=== PATIENT | male | born 1960 | race Caucasian/White ===

== ENCOUNTER 2020-05-26 02:42 | Inpatient (IN) ==
[2020-05-26] MEDS ORDERED: Ondansetron ODT 4 MG TAB.RAPDIS SL PRN (10:24)
[2020-05-26] MEDS ORDERED: Naloxone 0.4 MG/ML INJ IVP PRN (10:24)
[2020-05-26] MEDS: 0.9 % Sodium Chloride 1,000 ML IVC SCH ×2 (11:31→21:17)
[2020-05-26 12:08] LABS: Basophils # 0.1 K/mcL (0.0-0.2); Basophils % 0.8 %; Eosinophils # 0.2 K/mcL (0.0-0.6); Eosinophils % 2.1 %; Hematocrit 26.6 % (37.5-50.1); Hemoglobin 8.3 g/dL (12.9-16.9); Immature Granulocytes % 2.1 % (0-4); Lymphocytes # 1.2 K/mcL (0.6-4.6); Lymphocytes % 13.4 %; Mean Corpuscular HGB Conc 31.2 g/dL (31.6-35.5); Mean Corpuscular Hemoglobin 27.2 pg (28.0-33.3); Mean Corpuscular Volume 87.2 fL (83.0-100.0); Mean Platelet Volume 10.5 fL (9.4-12.4); Neutrophils # 6.3 K/mcL (1.6-8.9); Platelet Count 411 K/mcL (140-400); Red Blood Count 3.05 M/mcL (4.19-5.50); Red Cell Distribution Width 16.3 % (11.5-14.5); Segmented Neutrophils % 70.6 %; White Blood Count 8.9 K/mcL (4.3-11.1)
[2020-05-26 12:32] LABS: Albumin 2.8 g/dL (3.5-5.7); Albumin/Globulin Ratio 0.7 (1.1-2.2); Bilirubin,Total 0.8 mg/dL (0.3-1.0); Calcium 8.9 mg/dL (8.6-10.3); Globulin 4.1 g/dL (2.4-3.5); Potassium 4.2 mEq/L (3.5-5.1); Total Protein 6.9 g/dL (6.4-8.9); Uric Acid 6.6 mg/dL (2.3-7.6)
[2020-05-26] MEDS ORDERED: levoFLOXacin 750 MG/150 ML 750 MG/150 ML BAG IVPB ONE (17:00)
[2020-05-26] MEDS: Acetaminophen 325 MG TABLET PO PRN (17:10)
[2020-05-26 18:09] LABS: Adenovirus Not Detected (Not Detect); Bordetella Pertussis Not Detected (Not Detect); Chlamydophila pneumoniae Not Detected (Not Detect); Coronavirus 229E Not Detected (Not Detect); Coronavirus HKU1 Not Detected (Not Detect); Coronavirus NL63 Not Detected (Not Detect); Coronavirus OC43 Not Detected (Not Detect); Human Metapneumovirus Not Detected (Not Detect); Human Rhinovirus/Enterovirus Not Detected (Not Detect); Influenza A Subtype 2009 H1 Not Detected (Not Detect); Influenza B Not Detected (Not Detect); Mycoplasma pneumoniae Not Detected (Not Detect); Parainfluenza Virus 1 Not Detected (Not Detect); Parainfluenza Virus 2 Not Detected (Not Detect); Parainfluenza Virus 3 Not Detected (Not Detect); Parainfluenza Virus 4 Not Detected (Not Detect); Respiratory Syncytial Virus Not Detected (Not Detect); SARS-CoV-2 Not Detected (Not Detect)
[2020-05-27 02:03] LABS: Hematocrit 28.3 % (37.5-50.1); Hemoglobin 8.5 g/dL (12.9-16.9); Mean Corpuscular Hemoglobin 27.3 pg (28.0-33.3); Mean Platelet Volume 10.3 fL (9.4-12.4); Platelet Count 386 K/mcL (140-400); Red Blood Count 3.11 M/mcL (4.19-5.50); Red Cell Distribution Width 16.4 % (11.5-14.5); White Blood Count 7.7 K/mcL (4.3-11.1)
[2020-05-27 02:24] LABS: Chol/HDL Ratio 8.2 (0-4.9); Potassium 4.4 mEq/L (3.5-5.1)
[2020-05-27 02:26] LABS: Albumin 2.8 g/dL (3.5-5.7); Phosphorous 5.6 mg/dL (2.7-4.5)
[2020-05-27] MEDS ORDERED: *HR* HYDROmorphone (PF) 1 MG/ML SYRINGE IVP ONE ×2 (10:51→15:09)
[2020-05-27] MEDS: *HR* Heparin 5,000 UNIT/ML VIAL SQ SCH (18:15)
[2020-05-28 03:01] LABS: Basophils # 0.1 K/mcL (0.0-0.2); Basophils % 0.8 %; Eosinophils # 0.2 K/mcL (0.0-0.6); Eosinophils % 3.2 %; Hematocrit 28.3 % (37.5-50.1); Hemoglobin 8.6 g/dL (12.9-16.9); Immature Granulocytes % 2.3 % (0-4); Lymphocytes % 15.1 %; Mean Corpuscular HGB Conc 30.4 g/dL (31.6-35.5); Mean Corpuscular Hemoglobin 27.9 pg (28.0-33.3); Mean Corpuscular Volume 91.9 fL (83.0-100.0); Mean Platelet Volume 10.3 fL (9.4-12.4); Monocytes # 0.6 K/mcL (0.0-1.3); Monocytes % 9.8 %; Neutrophils # 4.5 K/mcL (1.6-8.9); Platelet Count 358 K/mcL (140-400); Red Blood Count 3.08 M/mcL (4.19-5.50); Red Cell Distribution Width 16.3 % (11.5-14.5); Segmented Neutrophils % 68.8 %; White Blood Count 6.6 K/mcL (4.3-11.1)
[2020-05-28 03:22] LABS: Calcium 8.7 mg/dL (8.6-10.3); Potassium 4.7 mEq/L (3.5-5.1)
[2020-05-28] MEDS: *HR* Heparin 5,000 UNIT/ML VIAL SQ SCH ×2 (04:48→16:53)
[2020-05-28] MEDS: MethylPREDNISolone 40 MG/ML VIAL IVP SCH ×2 (16:53→21:30)
[2020-05-28] MEDS ORDERED: levoFLOXacin 500 MG/100 ML 500 MG/100 ML BAG IVPB SCH (17:00)
[2020-05-29] MEDS: *HR* Heparin 5,000 UNIT/ML VIAL SQ SCH ×2 (04:21→17:43)
[2020-05-29 05:25] LABS: Basophils % 0.3 %; Hematocrit 29.2 % (37.5-50.1); Hemoglobin 8.9 g/dL (12.9-16.9); Immature Granulocytes % 3.4 % (0-4); Lymphocytes # 0.3 K/mcL (0.6-4.6); Lymphocytes % 4.8 %; Mean Corpuscular HGB Conc 30.5 g/dL (31.6-35.5); Mean Corpuscular Hemoglobin 27.8 pg (28.0-33.3); Mean Corpuscular Volume 91.3 fL (83.0-100.0); Mean Platelet Volume 10.4 fL (9.4-12.4); Monocytes # 0.1 K/mcL (0.0-1.3); Monocytes % 1.2 %; Neutrophils # 5.3 K/mcL (1.6-8.9); Platelet Count 411 K/mcL (140-400); Red Cell Distribution Width 15.9 % (11.5-14.5); Segmented Neutrophils % 90.3 %; White Blood Count 5.9 K/mcL (4.3-11.1)
[2020-05-29 06:01] LABS: Anisocytosis 1+ (Not Present); Platelet Estimate Normal (Normal); Toxic Granulation Present (Not Present)
[2020-05-29 06:58] LABS: Calcium 9.1 mg/dL (8.6-10.3); Potassium 5.9 mEq/L (3.5-5.1)
[2020-05-29] MEDS: MethylPREDNISolone 40 MG/ML VIAL IVP SCH ×3 (10:02→20:55)
[2020-05-29] MEDS: SODIUM ZIRCONIUM CYCLOSILICATE 5 GM POWD.PACK PO SCH (10:02)
[2020-05-29 14:30] LABS: Calcium 9.1 mg/dL (8.6-10.3)
[2020-05-29] MEDS ORDERED: Perflutren Lipid Microsphere 1.3 ML in 0.9 % Sodium Chloride 8.7 ML IVP PRN (14:36)
[2020-05-29] MEDS ORDERED: *HR* HYDROmorphone (PF) 1 MG/ML SYRINGE IVP ONE (21:25)
[2020-05-30 05:26] LABS: Basophils % 0.1 %; Hematocrit 26.9 % (37.5-50.1); Immature Granulocytes % 2.1 % (0-4); Lymphocytes # 0.4 K/mcL (0.6-4.6); Lymphocytes % 4.3 %; Mean Corpuscular HGB Conc 29.7 g/dL (31.6-35.5); Mean Corpuscular Hemoglobin 26.8 pg (28.0-33.3); Mean Corpuscular Volume 90.3 fL (83.0-100.0); Mean Platelet Volume 10.6 fL (9.4-12.4); Monocytes # 0.2 K/mcL (0.0-1.3); Monocytes % 2.3 %; Neutrophils # 8.8 K/mcL (1.6-8.9); Platelet Count 408 K/mcL (140-400); Red Blood Count 2.98 M/mcL (4.19-5.50); Red Cell Distribution Width 15.8 % (11.5-14.5); Segmented Neutrophils % 91.2 %
[2020-05-30 05:30] LABS: White Blood Count 9.6 K/mcL (4.3-11.1)
[2020-05-30 05:59] LABS: Calcium 8.7 mg/dL (8.6-10.3); Potassium 4.8 mEq/L (3.5-5.1)
[2020-05-30] MEDS: *HR* Heparin 5,000 UNIT/ML VIAL SQ SCH ×2 (06:13→17:36)
[2020-05-30] MEDS: SODIUM ZIRCONIUM CYCLOSILICATE 5 GM POWD.PACK PO SCH (09:11)
[2020-05-30] MEDS: MethylPREDNISolone 40 MG/ML VIAL IVP SCH ×2 (09:12→19:59)
[2020-05-30] MEDS ORDERED: *HR* HYDROmorphone (PF) 1 MG/ML SYRINGE IVP ONE (12:11)
[2020-05-30 13:00] LABS: Bilirubin,Urine Negative (Negative); Blood,Urine Small (Negative); Clarity,Urine Clear (Clear); Color,Urine Light-Yellow (Yellow); Glucose,Urine (UA) Normal (Normal); Ketones,Urine Negative (Negative); Leukocyte Esterase,Urine Negative (Negative); Mucus,Urine Few per lpf (None-Few); Nitrite,Urine Negative (Negative); PH,Urine 5.5 pH Units (5.0-8.0); Protein,Urine Negative (Neg-Trace); Specific Gravity,Urine 1.015 (1.010-1.025); Squamous Epithelial Cell,Urine Few per hpf (None-Few); Urobilinogen,Urine Normal (Normal); WBC,Urine 0-3 per hpf (0-3)
[2020-05-30 13:41] LABS: Protein/Creatinine Ratio,Urine 0.16 mg/mg (0.00-0.20)
[2020-05-31 03:06] LABS: Basophils % 0.2 %; Hematocrit 27.9 % (37.5-50.1); Hemoglobin 8.4 g/dL (12.9-16.9); Immature Granulocytes % 2.8 % (0-4); Lymphocytes # 0.3 K/mcL (0.6-4.6); Lymphocytes % 3.3 %; Mean Corpuscular HGB Conc 30.1 g/dL (31.6-35.5); Mean Corpuscular Hemoglobin 27.4 pg (28.0-33.3); Mean Corpuscular Volume 90.9 fL (83.0-100.0); Mean Platelet Volume 10.5 fL (9.4-12.4); Monocytes # 0.2 K/mcL (0.0-1.3); Monocytes % 1.9 %; Neutrophils # 8.8 K/mcL (1.6-8.9); Platelet Count 405 K/mcL (140-400); Red Blood Count 3.07 M/mcL (4.19-5.50); Segmented Neutrophils % 91.8 %; White Blood Count 9.6 K/mcL (4.3-11.1)
[2020-05-31 03:13] LABS: Calcium 8.4 mg/dL (8.6-10.3); Potassium 4.7 mEq/L (3.5-5.1)
[2020-05-31] MEDS: *HR* Heparin 5,000 UNIT/ML VIAL SQ SCH ×2 (05:46→18:47)
[2020-05-31] MEDS: MethylPREDNISolone 40 MG/ML VIAL IVP SCH ×3 (08:34→19:47)
[2020-05-31] MEDS: SODIUM ZIRCONIUM CYCLOSILICATE 5 GM POWD.PACK PO SCH (08:35)
[2020-06-01 05:23] LABS: Hematocrit 30.1 % (37.5-50.1); Hemoglobin 9.1 g/dL (12.9-16.9); Mean Corpuscular HGB Conc 30.2 g/dL (31.6-35.5); Mean Corpuscular Hemoglobin 27.1 pg (28.0-33.3); Mean Corpuscular Volume 89.6 fL (83.0-100.0); Mean Platelet Volume 10.4 fL (9.4-12.4); Monocytes # 0.2 K/mcL (0.0-1.3); Platelet Count 397 K/mcL (140-400); Red Blood Count 3.36 M/mcL (4.19-5.50); Red Cell Distribution Width 15.9 % (11.5-14.5); White Blood Count 9.6 K/mcL (4.3-11.1)
[2020-06-01 05:50] LABS: Calcium 8.4 mg/dL (8.6-10.3); Potassium 4.2 mEq/L (3.5-5.1)
[2020-06-01] MEDS: *HR* Heparin 5,000 UNIT/ML VIAL SQ SCH ×2 (06:16→17:38)
[2020-06-01 06:35] LABS: Anisocytosis 1+ (Not Present); Hypochromasia Present (Not Present); Lymphocytes # 0.2 K/mcL (0.6-4.6); Neutrophils # 8.8 K/mcL (1.6-8.9); Toxic Granulation Present (Not Present); Toxic Vacuolation Present (Not Present)
[2020-06-01 06:36] LABS: Platelet Estimate Normal (Normal)
[2020-06-01] MEDS: MethylPREDNISolone 40 MG/ML VIAL IVP SCH ×3 (09:29→19:40)
[2020-06-01] MEDS: SODIUM ZIRCONIUM CYCLOSILICATE 5 GM POWD.PACK PO SCH (09:29)
[2020-06-01] MEDS: Furosemide 40 MG/4 ML VIAL IVP SCH (11:25)
[2020-06-02 02:12] LABS: Basophils % 0.1 %; Eosinophils % 0.2 %; Hemoglobin 8.8 g/dL (12.9-16.9); Immature Granulocytes % 9.7 % (0-4); Lymphocytes # 0.6 K/mcL (0.6-4.6); Lymphocytes % 4.7 %; Mean Corpuscular HGB Conc 30.3 g/dL (31.6-35.5); Mean Corpuscular Hemoglobin 27.2 pg (28.0-33.3); Mean Corpuscular Volume 89.8 fL (83.0-100.0); Mean Platelet Volume 10.2 fL (9.4-12.4); Monocytes # 0.3 K/mcL (0.0-1.3); Monocytes % 2.6 %; Platelet Count 382 K/mcL (140-400); Red Blood Count 3.23 M/mcL (4.19-5.50); Red Cell Distribution Width 16.1 % (11.5-14.5); Segmented Neutrophils % 82.7 %; White Blood Count 12.9 K/mcL (4.3-11.1)
[2020-06-02 02:21] LABS: Neutrophils # 10.7 K/mcL (1.6-8.9)
[2020-06-02 02:35] LABS: Calcium 7.9 mg/dL (8.6-10.3); Potassium 4.3 mEq/L (3.5-5.1)
[2020-06-02 02:48] LABS: Anisocytosis 1+ (Not Present); Microcytosis Present (Not Present); Platelet Estimate Normal (Normal)
[2020-06-02 02:49] LABS: Hypochromasia Present (Not Present); Reactive Lymphocytes Present (Not Present); Toxic Granulation Present (Not Present)
[2020-06-02] MEDS: *HR* Heparin 5,000 UNIT/ML VIAL SQ SCH ×2 (05:38→18:18)
[2020-06-02] MEDS: MethylPREDNISolone 40 MG/ML VIAL IVP SCH ×3 (08:03→21:35)
[2020-06-02] MEDS: Furosemide 40 MG/4 ML VIAL IVP SCH (08:04)
[2020-06-03] MEDS: *HR* Heparin 5,000 UNIT/ML VIAL SQ SCH ×2 (04:57→17:08)
[2020-06-03] MEDS: Furosemide 40 MG/4 ML VIAL IVP SCH ×2 (08:44→17:09)
[2020-06-03] MEDS: MethylPREDNISolone 40 MG/ML VIAL IVP SCH ×3 (08:44→19:33)
[2020-06-04] MEDS ORDERED: amLODIPine 5 MG TABLET PO ONE (00:26)
[2020-06-04 04:42] LABS: Hematocrit 30.6 % (37.5-50.1); Hemoglobin 9.4 g/dL (12.9-16.9); Mean Corpuscular HGB Conc 30.7 g/dL (31.6-35.5); Mean Corpuscular Hemoglobin 27.2 pg (28.0-33.3); Mean Corpuscular Volume 88.7 fL (83.0-100.0); Mean Platelet Volume 10.1 fL (9.4-12.4); Nucleated Red Blood Cells 0.1 /100 WBC (0); Platelet Count 336 K/mcL (140-400); Red Blood Count 3.45 M/mcL (4.19-5.50); Red Cell Distribution Width 16.5 % (11.5-14.5); White Blood Count 14.8 K/mcL (4.3-11.1)
[2020-06-04 05:17] LABS: Calcium 7.5 mg/dL (8.6-10.3)
[2020-06-04 05:23] LABS: Basophilic Stippling 1+ (Not Present); Lymphocytes # 0.6 K/mcL (0.6-4.6); Monocytes # 0.3 K/mcL (0.0-1.3); Neutrophils # 13.3 K/mcL (1.6-8.9); Platelet Estimate Normal (Normal); Polychromasia 1+ (Not Present)
[2020-06-04] MEDS: *HR* Heparin 5,000 UNIT/ML VIAL SQ SCH ×2 (05:33→16:51)
[2020-06-04] MEDS: Furosemide 40 MG/4 ML VIAL IVP SCH ×2 (09:01→16:51)
[2020-06-04] MEDS: MethylPREDNISolone 40 MG/ML VIAL IVP SCH ×2 (09:01→21:10)
[2020-06-04] MEDS: Acetaminophen 325 MG TABLET PO PRN (09:02)
[2020-06-05 03:28] LABS: Hematocrit 33.8 % (37.5-50.1); Hemoglobin 10.4 g/dL (12.9-16.9); Mean Corpuscular HGB Conc 30.8 g/dL (31.6-35.5); Mean Corpuscular Hemoglobin 27.5 pg (28.0-33.3); Mean Corpuscular Volume 89.4 fL (83.0-100.0); Mean Platelet Volume 10.8 fL (9.4-12.4); Nucleated Red Blood Cells 0.2 /100 WBC (0); Platelet Count 312 K/mcL (140-400); Red Blood Count 3.78 M/mcL (4.19-5.50); Red Cell Distribution Width 16.7 % (11.5-14.5); White Blood Count 14.2 K/mcL (4.3-11.1)
[2020-06-05 03:47] LABS: Calcium 7.6 mg/dL (8.6-10.3); Potassium 4.1 mEq/L (3.5-5.1)
[2020-06-05 04:00] LABS: Anisocytosis 1+ (Not Present); Lymphocytes # 1.4 K/mcL (0.6-4.6); Monocytes # 0.3 K/mcL (0.0-1.3); Neutrophils # 11.9 K/mcL (1.6-8.9); Platelet Estimate Normal (Normal)
[2020-06-05] MEDS: *HR* Heparin 5,000 UNIT/ML VIAL SQ SCH ×2 (05:09→17:45)
[2020-06-05] MEDS: Furosemide 40 MG/4 ML VIAL IVP SCH (09:31)
[2020-06-05] MEDS: MethylPREDNISolone 40 MG/ML VIAL IVP SCH ×2 (09:31→20:41)
[2020-06-05] MEDS: Furosemide 40 MG TABLET PO SCH (17:45)
[2020-06-06] MEDS: *HR* Heparin 5,000 UNIT/ML VIAL SQ SCH ×2 (04:29→18:04)
[2020-06-06] MEDS: MethylPREDNISolone 40 MG/ML VIAL IVP SCH ×2 (07:55→19:32)
[2020-06-06] MEDS: Furosemide 40 MG TABLET PO SCH ×2 (07:56→18:05)
[2020-06-07] MEDS: *HR* Heparin 5,000 UNIT/ML VIAL SQ SCH ×2 (04:37→17:37)
[2020-06-07] MEDS: Furosemide 40 MG TABLET PO SCH ×2 (07:41→17:36)
[2020-06-07] MEDS ORDERED: predniSONE 20 MG TABLET PO SCH (09:00)
[2020-06-07 11:32] VITALS: BP 161/87
[2020-06-07 15:06] LABS: Influenza A PCR Negative (Negative); Influenza B PCR Negative (Negative); Resp. Syncytial Virus PCR Negative (Negative)
[2020-06-07 15:07] LABS: SARS-CoV-2 by PCR (In House) Negative (Negative)
== END 2020-06-07 18:18 | DRG 351 ==
LOC: 2NENU → SUATTDRO 09:29 → 2NENU 05-31 00:27
PROVIDERS: ADMIT Internal Medicine; ATTEND Internal Medicine

== ENCOUNTER 2021-03-09 23:02 | Observation (INO) ==
[2021-03-10 00:17] LABS: Basophils % 0.1 %; Eosinophils # 0.1 K/mcL (0.0-0.6); Hematocrit 43.2 % (37.5-50.1); Hemoglobin 13.5 g/dL (12.9-16.9); Immature Granulocytes % 0.5 % (0-4); Lymphocytes % 10.4 %; Mean Corpuscular HGB Conc 31.3 g/dL (31.6-35.5); Mean Corpuscular Hemoglobin 28.2 pg (28.0-33.3); Mean Corpuscular Volume 90.4 fL (83.0-100.0); Mean Platelet Volume 12.1 fL (9.4-12.4); Monocytes # 0.9 K/mcL (0.0-1.3); Monocytes % 8.8 %; Neutrophils # 7.7 K/mcL (1.6-8.9); Platelet Count 170 K/mcL (140-400); Red Blood Count 4.78 M/mcL (4.19-5.50); Red Cell Distribution Width 17.2 % (11.5-14.5); Segmented Neutrophils % 79.2 %; White Blood Count 9.7 K/mcL (4.3-11.1)
[2021-03-10 01:37] LABS: Albumin 3.5 g/dL (3.5-5.7); Bilirubin,Total 0.6 mg/dL (0.3-1.0); Calcium 8.3 mg/dL (8.6-10.3); Globulin 3.4 g/dL (2.4-3.5); Potassium 3.9 mEq/L (3.5-5.1); Total Protein 6.9 g/dL (6.4-8.9)
[2021-03-10 01:41] LABS: Troponin I 0.08 ng/mL (< 0.04)
[2021-03-10 02:46] LABS: Influenza A PCR Negative (Negative); Influenza B PCR Negative (Negative); Resp. Syncytial Virus PCR Negative (Negative)
[2021-03-10 02:50] LABS: SARS-CoV-2 by PCR (In House) Negative (Negative)
[2021-03-10] MEDS ORDERED: *HR* OxyCODONE Immed Rel 5 MG TABLET PO PRN (03:00)
[2021-03-10] MEDS ORDERED: Acetaminophen 325 MG TABLET PO PRN (03:00)
[2021-03-10] MEDS ORDERED: Naloxone 0.4 MG/ML INJ IVP PRN (03:00)
[2021-03-10] MEDS ORDERED: Melatonin 3 MG TABLET PO PRN (03:00)
[2021-03-10] MEDS ORDERED: Ondansetron ODT 4 MG TAB.RAPDIS SL PRN (03:00)
[2021-03-10 05:46] LABS: Activated Partial Thrombo Time 27.9 Seconds (26.0-36.0)
[2021-03-10 06:28] LABS: Basophils % 0.2 %; Eosinophils # 0.1 K/mcL (0.0-0.6); Eosinophils % 1.1 %; Hemoglobin 12.9 g/dL (12.9-16.9); Immature Granulocytes % 0.4 % (0-4); Lymphocytes % 10.5 %; Mean Corpuscular HGB Conc 30.7 g/dL (31.6-35.5); Mean Corpuscular Hemoglobin 28.2 pg (28.0-33.3); Mean Corpuscular Volume 91.9 fL (83.0-100.0); Mean Platelet Volume 12.7 fL (9.4-12.4); Monocytes # 0.8 K/mcL (0.0-1.3); Monocytes % 8.3 %; Neutrophils # 7.4 K/mcL (1.6-8.9); Platelet Count 154 K/mcL (140-400); Red Blood Count 4.57 M/mcL (4.19-5.50); Red Cell Distribution Width 17.4 % (11.5-14.5); Segmented Neutrophils % 79.5 %; White Blood Count 9.3 K/mcL (4.3-11.1)
[2021-03-10 07:42] LABS: Albumin 3.4 g/dL (3.5-5.7); Albumin/Globulin Ratio 1.2 (1.1-2.2); Bilirubin,Total 0.5 mg/dL (0.3-1.0); Globulin 2.9 g/dL (2.4-3.5); Potassium 3.8 mEq/L (3.5-5.1); Total Protein 6.3 g/dL (6.4-8.9)
[2021-03-10] MEDS: amLODIPine 5 MG TABLET PO SCH (12:03)
[2021-03-10] MEDS ORDERED: MethylPREDNISolone 40 MG/ML VIAL IVP ONE (15:39)
[2021-03-10] MEDS: *HR* HYDROmorphone (PF) 1 MG/ML SYRINGE IVP PRN (17:08)
[2021-03-10] MEDS: *HR* Heparin 5,000 UNIT/ML VIAL SQ SCH (17:08)
[2021-03-10] MEDS: Furosemide 40 MG TABLET PO SCH (17:08)
[2021-03-10] MEDS: *HR* HYDROcodone/Acet 5/325 mg TABLET PO PRN (20:17)
[2021-03-11] MEDS: *HR* HYDROmorphone (PF) 1 MG/ML SYRINGE IVP PRN (01:17)
[2021-03-11 02:52] VITALS: TEMP 97.5
[2021-03-11] MEDS: *HR* Heparin 5,000 UNIT/ML VIAL SQ SCH (06:15)
[2021-03-11] MEDS: *HR* HYDROcodone/Acet 5/325 mg TABLET PO PRN (06:18)
[2021-03-11 06:37] VITALS: BP 171/80; PULSE 50; O2SAT 98
[2021-03-11] MEDS ORDERED: *HR* HYDROcodone/Acet 5/325 mg TABLET PO PRN (07:52)
[2021-03-11] MEDS: amLODIPine 5 MG TABLET PO SCH (08:28)
[2021-03-11] MEDS: Furosemide 40 MG TABLET PO SCH (08:28)
[2021-03-11] MEDS ORDERED: allopurinoL 300 MG TABLET PO SCH (09:00)
[2021-03-11] MEDS ORDERED: predniSONE 20 MG TABLET PO SCH (09:00)
== END 2021-03-11 11:08 | disposition home or self-care (01) ==
LOC: 2ANU 23:02 → EMEROOARM 23:02 → SUATTDRO 03-10 02:56 → 2ANU 03-10 04:15
PROVIDERS: ADMIT Family Medicine; ATTEND Internal Medicine